=== PATIENT | female | born 1970 | race Caucasian/White ===

== ENCOUNTER 2023-05-26 12:21 | Outpatient (CLI) | payer OTHER, MEDICAID ==
[~2023-05-26 12:21] MED LIST: Magnevist 469MG/ML 20 ML VIAL ONE
== END 2023-05-26 12:22 | disposition home or self-care (01) ==
LOC: CSHMRI 12:21
PROVIDERS: ATTEND Neurological Surgery
DX: M50.121 Cervical disc disorder at C4-C5 level with radiculopathy (principal); M50.021 Cervical disc disorder at C4-C5 level with myelopathy; M51.17 Intervertebral disc disorders with radiculopathy, lumbosacral region; Z98.1 Arthrodesis status; M48.02 Spinal stenosis, cervical region
CPT/HCPCS: 72156; 72158